=== PATIENT | female | born 1960 | race Caucasian/White ===

== ENCOUNTER 2017-05-28 11:00 | Inpatient (IN) | payer OTHER ==
[~2017-05-28] VITALS: Ht 162.7 cm; Wt 77.7 kg
[~2017-05-28 11:00] MED LIST: anxiety med PO
[2017-05-29] MEDS ORDERED: SODIUM CHLORIDE 0.9% 0 ML ONE (06:50)
[2017-05-29] MEDS ORDERED: SODIUM CHLORIDE 0.9% 250 ML IV ONE (06:50)
[2017-05-29] MEDS ORDERED: VANCOMYCIN HCL 1 GM/VIAL ONE (06:50)
[2017-05-29] MEDS ORDERED: LIDOCAINE HCL 0.5% 50 ML VIAL ONE (06:50)
[2017-05-29] MEDS ORDERED: CeFAZolin 2 GM/DEXTROSE 50 ML IV ONE (07:00)
[2017-05-29] MEDS ORDERED: ONDANSETRON HCL 4 MG/2 ML VIAL IVP PRN ×2 (07:00→10:00)
[2017-05-29] MEDS ORDERED: PROMETHAZINE HCL 25 MG/ML VIAL IM PRN (07:00)
[2017-05-29] MEDS ORDERED: MEPERIDINE-PF 25 MG/ML SYRINGE IVP PRN (07:00)
[2017-05-29] MEDS ORDERED: ZOLPIDEM TARTRATE 5 MG TABLET PO PRN (07:00)
[2017-05-29] MEDS ORDERED: FentaNYL CITRATE-PF 100 MCG/2 ML VIAL IVP PRN (07:00)
[2017-05-29] MEDS ORDERED: CYCLOBENZAPRINE HCL 10 MG TABLET PO PRN (07:00)
[2017-05-29] MEDS ORDERED: ACETAMINOPHEN 1000 MG/ISO-OSM 100 ML IV ONE (07:03)
[2017-05-29 07:05] LABS: BASOPHILS % (AUTO) 0.5 % (0.0-2.0); EOSINOPHILS % (AUTO) 2.7 % (1.0-6.0); HEMATOCRIT 40.9 % (36-46); HEMOGLOBIN 13.7 g/dL (12.0-16.0); LYMPHOCYTES # (AUTO) 3.5 K/uL (1.0-4.8); LYMPHOCYTES % (AUTO) 35.4 % (22.0-44.0); MEAN CORPUSCULAR HEMOGLOBIN 28.7 pg (26.0-34.0); MEAN CORPUSCULAR HGB CONC 33.5 G/dL (31.0-37.0); MEAN CORPUSCULAR VOLUME 86 fL (80-100); MONOCYTES # (AUTO) 0.6 K/uL (0.1-1.0); MONOCYTES % (AUTO) 6.5 % (2.0-9.0); NEUTROPHILS # (AUTO) 5.4 K/uL (1.8-7.7); NEUTROPHILS % (AUTO) 54.9 % (40.0-70.0); PLATELET COUNT (AUTO) 257 K/uL (150-450); RED BLOOD CELL COUNT(AUTO) 4.77 MIL/uL (4.00-5.20); RED CELL DISTRIBUTION WIDTH 13.9 % (11.5-14.5); WHITE BLOOD COUNT (AUTO) 9.9 K/uL (4.5-11.0)
[2017-05-29] MEDS: ACETAMINOPHEN 1000 MG/ISO-OSM 100 ML IV SCH ×3 (07:15→19:00)
[2017-05-29] MEDS ORDERED: SODIUM CHLORIDE 0.9% 20 ML ONE (07:23)
[2017-05-29] MEDS ORDERED: RINGERS SOLUTION,LACTATED 1,000 ML IV ONE ×2 (07:30→09:56)
[2017-05-29] MEDS: BACITRACIN 50,000 UNITS/VIAL ONE ×2 (08:40→08:54)
[2017-05-29] MEDS: LIDOCAINE HCL 1%/EPI 1:200,000/PF 30 ML VIAL ONE ×2 (08:40→09:07)
[2017-05-29] MEDS ORDERED: ZOLPIDEM TARTRATE 10 MG TABLET PO PRN (10:00)
[2017-05-29] MEDS ORDERED: DiphenhydrAMINE HCL 50 MG/ML VIAL IVP PRN (10:00)
[2017-05-29] MEDS ORDERED: MAG HYDROX/AL HYDROX/SIMETH 30 ML SUSP UDCUP PO PRN (10:00)
[2017-05-29] MEDS ORDERED: PROMETHAZINE HCL 12.5 MG in SODIUM CHLORIDE 0.9% 50 ML IV PRN (10:00)
[2017-05-29] MEDS: HYDROmorphone 2 MG/ML SYRINGE IVP PRN ×6 (10:38→10:58)
[2017-05-29] MEDS ORDERED: MEPERIDINE-PF 25 MG/ML SYRINGE ONE (10:38)
[2017-05-29] MEDS ORDERED: HYDROmorphone 2 MG/ML SYRINGE ONE (10:39)
[2017-05-29] MEDS ORDERED: LORazepam 2 MG/ML VIAL IVP ONE ×2 (11:20→11:30)
[2017-05-29] MEDS ORDERED: LORazepam 2 MG/ML VIAL ONE (11:24)
[2017-05-29 12:39] VITALS: BP 127/61
[2017-05-29 16:06] VITALS: BP 128/70
[2017-05-29] MEDS: DEXAMETHASONE SOD PHOS 4 MG/ML VIAL IVP SCH ×2 (16:51→18:00)
[2017-05-29] MEDS ORDERED: DIAZEPAM 5 MG/ML 2 ML SYRINGE IVP PRN (19:45)
[2017-05-29] MEDS: OXYGEN THERAPY IH SCH ×2 (20:00)
[2017-05-29 20:47] VITALS: BP 122/78
[2017-05-29] MEDS: DOCUSATE SODIUM 100 MG CAPSULE PO SCH (20:54)
[2017-05-29] MEDS ORDERED: GLYCOPYRROLATE 0.2 MG/ML VIAL IM ONE (23:58)
[2017-05-29] MEDS ORDERED: NEOSTIGMINE METHYLSULFATE 1 MG/ML 10 ML VIAL IVP ONE (23:58)
[2017-05-29] MEDS ORDERED: LIDOCAINE HCL/PF 2% 5 ML VIAL IM ONE (23:58)
[2017-05-29] MEDS ORDERED: MIDAZOLAM HCL 2 MG/2 ML VIAL IVP ONE (23:58)
[2017-05-29] MEDS ORDERED: PROPOFOL 1% 20 ML VIAL IVP ONE (23:58)
[2017-05-29] MEDS ORDERED: DEXAMETHASONE SOD PHOS 4 MG/ML VIAL IVP ONE (23:58)
[2017-05-29] MEDS ORDERED: ROCURONIUM BROMIDE 10 MG/ML 5 ML VIAL IVP ONE (23:58)
[2017-05-29] MEDS ORDERED: KETAMINE HCL 50 MG/ML 10 ML VIAL IVP ONE (23:58)
[2017-05-29] MEDS ORDERED: EPHEDrine SULFATE 50 MG/ML VIAL IM ONE (23:58)
[2017-05-29] MEDS ORDERED: 0.9% SODIUM CHLORIDE 10 ML VIAL IVP ONE (23:58)
[2017-05-29] MEDS ORDERED: SUCCINYLCHOLINE CHLORIDE 20 MG/ML 10 ML VIAL IVP ONE (23:58)
[2017-05-29] MEDS ORDERED: FentaNYL CITRATE-PF 100 MCG/2 ML VIAL IVP ONE (23:58)
[2017-05-30] MEDS: DEXAMETHASONE SOD PHOS 4 MG/ML VIAL IVP SCH ×3 (00:25→06:51)
[2017-05-30] MEDS: ACETAMINOPHEN 1000 MG/ISO-OSM 100 ML IV SCH ×3 (00:25→07:00)
[2017-05-30 00:28] VITALS: BP 118/66
[2017-05-30 05:33] VITALS: BP 126/74
[2017-05-30] MEDS: HYDROmorphone 2 MG/ML SYRINGE IVP PRN (05:41)
[2017-05-30 05:59] LABS: EOSINOPHILS % (AUTO) 0 % (1.0-6.0); HEMATOCRIT 41.5 % (36-46); HEMOGLOBIN 13.6 g/dL (12.0-16.0); LYMPHOCYTES # (AUTO) 1.1 K/uL (1.0-4.8); LYMPHOCYTES % (AUTO) 4.6 % (22.0-44.0); MEAN CORPUSCULAR HEMOGLOBIN 28.2 pg (26.0-34.0); MEAN CORPUSCULAR HGB CONC 32.8 G/dL (31.0-37.0); MEAN CORPUSCULAR VOLUME 86 fL (80-100); MONOCYTES # (AUTO) 0.4 K/uL (0.1-1.0); MONOCYTES % (AUTO) 1.6 % (2.0-9.0); NEUTROPHILS # (AUTO) 21.9 K/uL (1.8-7.7); PLATELET COUNT (AUTO) 246 K/uL (150-450); RED BLOOD CELL COUNT(AUTO) 4.84 MIL/uL (4.00-5.20); RED CELL DISTRIBUTION WIDTH 13.7 % (11.5-14.5); WHITE BLOOD COUNT (AUTO) 23.3 K/uL (4.5-11.0)
[2017-05-30 06:03] LABS: NEUTROPHILS % (AUTO) 93.8 % (40.0-70.0)
[2017-05-30 06:33] LABS: ANION GAP 10 mmol/L (8-16); CARBON DIOXIDE 23 mmol/L (22-29); CHLORIDE 105 mmol/L (98-107); CREATININE 0.73 mg/dL (0.60-1.30); GLOMERULAR FILTR. RATE CALC > 60 mL/min (>60); POTASSIUM 4.2 mmol/L (3.5-5.1); SODIUM SERUM 138 mmol/L (136-145); UREA NITROGEN, BLOOD 14 mg/dL (7-18)
[2017-05-30 06:46] LABS: RBC MORPHOLOGY COMMENT NORMAL RBC MORPH
[2017-05-30] MEDS: OXYGEN THERAPY IH SCH ×2 (08:00→08:46)
[2017-05-30 08:22] VITALS: BP 125/77
[2017-05-30] MEDS: DOCUSATE SODIUM 100 MG CAPSULE PO SCH (08:34)
[2017-05-30] MEDS ORDERED: NICOTINE 7 MG/24 HOUR PATCH TD ONE (11:45)
[2017-05-30] MEDS ORDERED: OxyCODONE HCL/ACETAMINOPHEN 10-325 MG TABLET PO PRN (13:00)
[2017-05-30 14:24] VITALS: BP 134/68
[2017-05-30 16:00] VITALS: BP 135/65
[2017-05-30] MEDS ORDERED: PERCT10 PO (16:20)
[2017-05-30] MEDS ORDERED: CYCL10 PO (16:20)
[2017-05-30] MEDS ORDERED: DSS100 PO (16:21)
== END 2017-05-30 17:26 | disposition home or self-care (01) | DRG 473 ==
LOC: 4E 05-29 05:42 → INTOOBSV 05-29 05:42 → OBSVTOIN 05-29 05:42
PROVIDERS: ADMIT Neurological Surgery; ATTEND Neurological Surgery
PROC: 0RB30ZZ Excision of Cervical Vertebral Disc, Open Approach (ICD-10-PCS; 2017-05-29)
PROC: 4A11X4G Monitoring of Peripheral Nervous Electrical Activity, Intraoperative, External Approach (ICD-10-PCS; 2017-05-29)
PROC: 0RG10A0 Fusion of Cervical Vertebral Joint with Interbody Fusion Device, Anterior Approach, Anterior Column, Open Approach (ICD-10-PCS; principal; 2017-05-29 08:40)
DX: M50.122 Cervical disc disorder at C5-C6 level with radiculopathy (principal); M48.02 Spinal stenosis, cervical region; F41.9 Anxiety disorder, unspecified; B19.20 Unspecified viral hepatitis C without hepatic coma; F17.210 Nicotine dependence, cigarettes, uncomplicated; M25.78 Osteophyte, vertebrae
CPT/HCPCS: 87081; 97161; 97165; 97530; C1713; G0238; J0131; J0330; J0690; J1100; J1170; J2060; J2175; J2250; J2704; J3010; J3370; J3490; J7050; J7120